=== PATIENT | female | born 1975 | race Caucasian/White ===

== ENCOUNTER 2025-06-25 19:03 | Emergency (ER) | payer SELFPAY ==
[~2025-06-25] VITALS: Ht 177.8 cm; Wt 113.4 kg
[2025-06-25 19:56] VITALS: PULSE 87; RESP 17; TEMP 98.2
[2025-06-25 22:26] VITALS: BP 149/88; PULSE 62; RESP 17; TEMP 98.2; O2SAT 100
== END 2025-06-25 22:36 | disposition home or self-care (01) ==
LOC: ER 20:02
DX: M79.671 Pain in right foot (principal); D64.9 Anemia, unspecified; M19.09 Primary osteoarthritis, other specified site
CPT/HCPCS: 99283